=== PATIENT | female | born 1965 | race Asian ===

== ENCOUNTER 2021-04-08 00:17 | Emergency (ER) | payer OTHER ==
[~2021-04-08] VITALS: Ht 162.6 cm; Wt 73.9 kg
[2021-04-08 00:32] VITALS: BP 138/87
--- NOTE | 2021-04-08 01:20 | NUR ---
Patient discharged to home in stable condition. Written and verbal after care instructions given. Patient verbalizes understanding of instruction. Pt ambulatory with a steady gait
== END 2021-04-08 01:21 | disposition home or self-care (01) ==
LOC: ER 00:24
DX: T18.0XXA Foreign body in mouth, initial encounter (principal); I10 Essential (primary) hypertension; E11.9 Type 2 diabetes mellitus without complications; Z98.890 Other specified postprocedural states; Z60.2 Problems related to living alone; X58.XXXA Exposure to other specified factors, initial encounter; Y93.89 Activity, other specified; Y92.89 Other specified places as the place of occurrence of the external cause; Y99.8 Other external cause status